=== PATIENT | male | born 1995 | race Two or more races ===

== ENCOUNTER 2023-04-15 15:42 | Emergency (ER) | payer SELFPAY ==
[2023-04-22 08:07] LABS: HSV-1 DNA Negative (Negative); HSV-2 DNA Negative (Negative)
== END 2023-04-15 17:11 | disposition home or self-care (01) ==
LOC: MW.ED 15:42
DX: A60.00 Herpesviral infection of urogenital system, unspecified (principal); F17.210 Nicotine dependence, cigarettes, uncomplicated
CPT/HCPCS: 36415; 87529; 99283

== ENCOUNTER 2023-06-18 21:03 | Emergency (ER) | payer SELFPAY ==
[2023-06-18 22:38] LABS: APPEARANCE,URINE CLEAR; BILIRUBIN,URINE NEGATIVE (NEGATIVE); COLOR,URINE YELLOW; GLUCOSE,URINE NEGATIVE (NEGATIVE); KETONES,URINE NEGATIVE (NEGATIVE); LEUKOCYTE ESTERASE,URINE NEGATIVE (NEGATIVE); NITRITE,URINE NEGATIVE (NEGATIVE); OCCULT BLOOD,URINE NEGATIVE (NEGATIVE); PROTEIN,URINE NEGATIVE (NEGATIVE)
[2023-06-18 23:21] LABS: C. TRACHOMATIS BY PCR NOT DETECTED; N. GONORRHOEAE BY PCR NOT DETECTED
== END 2023-06-18 23:35 | disposition home or self-care (01) ==
LOC: MW.ED 21:03
DX: B00.2 Herpesviral gingivostomatitis and pharyngotonsillitis (principal)
CPT/HCPCS: 36415; 81003; 86592; 87389; 87491; 87591; 99283

== ENCOUNTER 2025-04-09 21:59 | Emergency (ER) | payer SELFPAY | END 2025-04-10 00:02 | disposition home or self-care (01) | LOC: MW.ED 21:59 | DX: S93.401A Sprain of unspecified ligament of right ankle, initial encounter (principal); X50.1XXA Overexertion from prolonged static or awkward postures, initial encounter | CPT/HCPCS: 73590-26-RT; 73590-RT; 73610-26-RT; 73610-RT; 73620-26-RT; 73620-RT; 99283 ==